=== PATIENT | male | born 1945 | race Hispanic/Latino ===

== ENCOUNTER → 2019-02-15 | Outpatient (CLI) | payer OTHER ==
[~2019-02-15] MED LIST: AMLO5TAB9 PO; ASPI-1181 PO; ASPI-555 PO; ATOR40TA71 PO; CLOP75TA32 PO; FURO20TA4 PO; INSLAN SQ; IRON18TA PO; LOSA100T58 PO; METF-444 PO; METF-527 PO; METO-391 PO; METO50TA18 PO; NYST5ORA7 PO; OMEP40CA37 PO; PIOG30TA70 PO; PRAV40TA3 PO; PRAZ2CAP2 PO; PRAZOSIN PO; TYL3 PO
== END | disposition home or self-care (01) ==
LOC: RAH 11:21
PROVIDERS: ATTEND Physical Medicine & Rehabilitation
DX: M47.816 Spondylosis without myelopathy or radiculopathy, lumbar region (principal); M47.817 Spondylosis without myelopathy or radiculopathy, lumbosacral region; M48.07 Spinal stenosis, lumbosacral region; M25.78 Osteophyte, vertebrae
CPT/HCPCS: 72114

== ENCOUNTER → 2020-01-03 | Outpatient (CLI) | payer OTHER ==
[~2020-01-03] MED LIST changes: +OMEP40CA13 PO; -OMEP40CA37 PO; +REGADENOSON 0.4 MG/5 ML PF SYG IVP SCH
== END | disposition home or self-care (01) ==
LOC: SHCH 08:29
PROVIDERS: ATTEND Internal Medicine Cardiovascular Disease
DX: I25.10 Atherosclerotic heart disease of native coronary artery without angina pectoris (principal); R94.39 Abnormal result of other cardiovascular function study
CPT/HCPCS: 78452; 93017; 96374; A9500 ×2; J2785